=== PATIENT | female | born 1985 | race Caucasian/White ===

== ENCOUNTER 2016-10-22 11:21 | Emergency (ER) | payer OTHER ==
[~2016-10-22] VITALS: Ht 167.6 cm; Wt 88.0 kg
[~2016-10-22 11:21] MED LIST: CEPH500C3 PO; Z.0.NO CURRENT MEDS
[2016-10-22 11:24] VITALS: BP 141/72; PULSE 71; RESP 16; TEMP 98.2; O2SAT 100
--- NOTE | 2016-10-22 12:35 | PD ---
HPI Chief Complaint: Bite or Sting Time Seen by Provider: 12:27 Travel History International Travel<30 days: No Contact w/Intl Traveler<30days: No Traveled to known affect area: No History of Present Illness HPI 31-year-old female presents to the ED for evaluation of 5 day history of itching of the scalp and pain of multiple small, painful wounds around the hairline. She states that she also removed a tick from the back of the head a few days ago. She suspects that she picked up the tick in a [place] area [place]. She states that her head feels tender and "swollen." She denies fever, chills, nausea, vomiting, headache. She endorses history of MRSA. PFSH Past Medical History ?: Unknown LMP: 3 WEEKS AGO Social History Alcohol Use: Yes (WEEKLY) Tobacco Use: Yes (1PPD) Substance Use: No Allergies-Medications (Allergen,Severity, Reaction): Coded Allergies: penicillin G (Unverified Allergy, Mild, UNKNOWN, 10/22/16) Reported Meds & Prescriptions Reported Meds & Active Scripts Active Nizoral Topical Shampoo (Ketoconazole) 2% Sham 1 Applic TOPICAL 2XWEEK 30 Days Apply to scalp Bactrim DS (Sulfamethoxazole-Trimethoprim) 800-160 Mg Tab 1 Tab PO BID Review of Systems Except as stated in HPI: all other systems reviewed are Neg Physical Exam Narrative GENERAL: Well-nourished, well-developed white female in no acute distress. SKIN: Focused skin assessment warm/dry. HEAD: Normocephalic. Patchy, erythematous, nonblanching, scaly areas along the posterior scalp. Suspicious for tinea capitis. The hair line has several excoriated areas with localized erythema and tenderness. Suspect secondary infection. EYES: No scleral icterus. No injection or drainage. NECK: Supple, trachea midline. No JVD or lymphadenopathy. CARDIOVASCULAR: Regular rate and rhythm without murmurs, gallops, or rubs. RESPIRATORY: Breath sounds equal bilaterally. No accessory muscle use. GASTROINTESTINAL: Abdomen soft, non-tender, nondistended. MUSCULOSKELETAL: No cyanosis, or edema. BACK: Nontender without obvious deformity. No CVA tenderness. Data Data Last Documented VS Vital Signs Date Time Temp Pulse Resp B/P (MAP) Pulse Ox O2 Delivery O2 Flow Rate FiO2 10/22/16 11:24 98.2 71 16 141/72 (68) 100 [facility] Medical Decision Making Medical Screen Exam Complete: Yes Emergency Medical Condition: Yes Differential Diagnosis tinea capitis versus seborrheic dermatitis versus secondary infection versus less likely lyme disease versus other Narrative Course 31-year-old female presents to the ED for evaluation of 5 day history of itching of the scalp and pain of multiple small, painful wounds around the hairline. She states that she also removed a tick from the back of the head a few days ago. She suspects that she picked up the tick in a [place]ed area near [place] house. She states that her head feels tender and "swollen." She denies fever, chills, nausea, vomiting, headache. She endorses history of MRSA. Vitals reviewed. Physical exam reveals multiple patchy, erythematous, nonblanching, scaly areas along the posterior scalp. Suspicious for tinea capitis. The hair line has several excoriated areas with localized erythema and tenderness. Suspect secondary infection. None of these even remotely resemble target lesions. I discussed the very low possibility of Lyme disease with the patient. I prescribed ketoconazole shampoo to treat the tinea and Bactrim DS twice a day 7 days for the folliculitis/early cellulitis. Patient is instructed to monitor for worsening signs of infection, follow up with the recoating machine operator. We discussed reasons to return to the ED. She indicated understanding of instructions. She is stable and discharged home. Diagnosis Primary Impression: Tinea capitis Additional Impression: Folliculitis Referrals: [facility] [employer] [facility] Patient Instructions: Folliculitis (ED), General Instructions, Tinea Capitis ( ED) Additional Instructions: Rest, hydrate. Use shampoo as prescribed. Take all antibiotics as prescribed, even if symptoms resolve. Follow-up with the recoating machine operator. Return to the ED for any urgent or emergent medical condition. Med/Other Pt SpecificInfo: Prescription(s) given Scripts Ketoconazole Topical Shampoo (Nizoral Topical Shampoo) 2% Sham 1 APPLIC TOPICAL 2XWEEK for Fungal Infection for 30 Days, #1 BOTTLE 0 Refills Apply to scalp Prov: Silvina Foster MD 10/22/16 Sulfamethoxazole-Trimethoprim (Bactrim DS) 800-160 Mg Tab 1 TAB PO BID for Infection, #14 TAB 0 Refills Prov: Silvina Foster MD 10/22/16 Disposition: 01 DISCHARGE HOME Condition: Stable [place] Oct 22, 2016 12:35
[2016-10-22] MEDS ORDERED: KETOC2%T TOPICAL (12:38)
[2016-10-22] MEDS ORDERED: BACT800T5 PO (12:38)
== END 2016-10-22 12:48 | disposition home or self-care (01) ==
LOC: PHEFT 11:21
DX: B35.0 Tinea barbae and tinea capitis (principal); L73.9 Follicular disorder, unspecified; Z88.0 Allergy status to penicillin
CPT/HCPCS: 99283